=== PATIENT | female | born 1940 | race Caucasian/White ===

== ENCOUNTER → 2017-07-13 | Outpatient (CLI) | payer MEDICARE, OTHER ==
[~2017-07-13] MED LIST: NITROGLYCERIN AEROSOL (4.9 GM)
[2017-07-13 09:33] LABS: CREATININE 0.79 mg/dl (0.44-1.00)
[2017-07-13 09:33] LABS: BLOOD UREA NITROGEN 17 mg/dl (7-20)
[2017-07-13] MEDS: IOHEXOL 100 ML (11:10)
[2017-07-13] MEDS: SOD CHLORIDE 0.9% 100 ML (11:11)
== END | disposition home or self-care (01) ==
LOC: LAB 08:43
DX: R06.00 Dyspnea, unspecified (principal)
CPT/HCPCS: 75574; 82565; 84520